=== PATIENT | male | born 1990 | race Caucasian/White ===

== ENCOUNTER 2018-12-07 20:25 | Emergency (ER) | payer SELFPAY ==
[~2018-12-07] VITALS: Ht 193 cm; Wt 149.7 kg
[2018-12-07 20:53] VITALS: Ht 193 cm; Wt 149.7 kg
[2018-12-07 21:56] VITALS: BP 122/60
== END 2018-12-07 21:56 | disposition home or self-care (01) ==
LOC: ED 20:25
DX: R40.4 Transient alteration of awareness (principal); R41.0 Disorientation, unspecified; R11.2 Nausea with vomiting, unspecified; R51 Headache; F32.9 Major depressive disorder, single episode, unspecified; F41.9 Anxiety disorder, unspecified
CPT/HCPCS: J2270